=== PATIENT | female | born 1990 ===

== ENCOUNTER 2024-08-30 13:03 | Emergency (ER) | payer OTHER, MEDICAID, SELFPAY ==
[2024-08-30 13:14] VITALS: BP 109/68; PULSE 85; RESP 16; TEMP 37.3; O2SAT 96; BMI 25.9
[2024-08-30] MEDS: TET,DIPH,PERTUSS(ACELL),VAC/PF 0.5 ML SYRINGE IM (14:43)
[2024-08-30 14:55] VITALS: BP 100/62; PULSE 80; RESP 20; TEMP 37; O2SAT 100
--- NOTE | 2024-08-30 15:09 | ED_ITS ---
HPI - Wound/Laceration <Kyara Coronado PA-C - Last Filed: 08/30/24 15:21> General Chief Complaint: Wound/Laceration Stated Complaint: Cut RH index finger Time Seen by Provider: 08/30/24 13:34 Source: patient Mode of arrival: Ambulatory History of Present Illness HPI narrative: 33-year-old female presents to the ED status post a right pinky finger injury sustained just prior to arrival. Patient accidentally injured her right pinky on the blades of a office rep. Patient is unsure of tetanus status. Bleeding has been controlled with pressure. Patient states she is able to move her finger normally. No numbness, tingling, weakness. Related Data Allergies Allergy/AdvReac Type Severity Reaction Status Date / Time No Known Drug Allergies Allergy Verified 08/30/24 13:18 Review of Systems <Kyara Coronado PA-C - Last Filed: 08/30/24 15:21> Constitutional Constitutional: Denies chills, Denies fatigue, Denies fever(s), Denies frequent falls, Denies lethargy and Denies weakness Eyes Eyes: Denies change in vision, Denies eye discharge, Denies irritation and Denies loss of vision ENT Ears, Nose, Mouth, and Throat: Denies change in voice, Denies dizziness, Denies neck pain, Denies sore throat and Denies throat swelling Cardiovascular Cardiovascular: Denies chest pain, Denies irregular heart rhythm, Denies lightheadedness, Denies palpitations, Denies dyspnea, Denies dyspnea on exertion and Denies orthopnea Respiratory Respiratory: Denies cough, Denies dyspnea, Denies dyspnea on exertion and Denies wheezing Gastrointestinal Gastrointestinal: Denies abdominal pain, Denies change in bowel habits, Denies diarrhea, Denies nausea and Denies vomiting Musculoskeletal Musculoskeletal: Denies neck pain and Denies numbness Integumentary/Breasts Skin/Breast: Denies pruritus, Denies erythema, Denies rash and Denies wounds Comments: Laceration on right pinky finger Neurologic Neurologic: Denies behavioral changes, Denies confusion, Denies dizziness, Denies frequent falls, Denies loss of vision, Denies numbness and Denies weakness Psychiatric Psychiatric: Denies anxiety, Denies behavioral changes, Denies confusion, Denies depression, Denies homicidal ideation and Denies suicidal ideation Endocrine Endocrine: Denies fatigue, Denies flushing and Denies palpitations Hematologic/Lymphatic Hematologic/Lymphatic: Denies easy bruising Allergic/Immunologic Allergic/Immunologic: Denies urticaria, Denies throat swelling and Denies wheezing Patient History <SHEN Street Last Filed: 08/30/24 15:21> Social History Smoking Status: Never smoker Smoking Status: Never smoker alcohol intake frequency: a few times a week Substance Use Type: marijuana Exam <SHEN Street Last Filed: 08/30/24 15:21> Narrative Exam Narrative: Const General:?cooperative, healthy appearing and comfortable [facility] Head:?normal to inspection Ears:?hearing grossly normal bilaterally Nose:?external nose normal Face and sinus:?normal facial exam and sinuses nontender Mouth:?oral mucosae normal Throat:?posterior oropharynx normal Eyes General:?appearance normal, both eyes and all related structures Neck Neck:?normal visual inspection and no lymphadenopathy noted Resp Effort & Inspection:?normal respiratory effort Auscultation:?clear to auscultation bilaterally Cardio Rate:?regular rate Rhythm:?regular rhythm Integumentary There is a 1 cm linear laceration to the palmar aspect of the middle phalanx. no deeper structures visualized on exam. There is full range of motion. Strength and sensation is intact. Patient is neurovascularly intact. Bleeding is controlled with pressure. Neuro General:?patient alert, patient awake and patient oriented x3 Initial Vital Signs Initial Vital Signs: Vital Signs Temperature 99.1 F 08/30/24 13:14 Pulse Rate 85 08/30/24 13:14 Respiratory Rate 16 08/30/24 13:14 Blood Pressure 109/68 08/30/24 13:14 Pulse Oximetry 96 08/30/24 13:14 Oxygen Delivery Method Room Air 08/30/24 13:14 <Helen Ball DO - Last Filed: 08/31/24 13:56> Initial Vital Signs Initial Vital Signs: Vital Signs Temperature 99.1 F 08/30/24 13:14 Pulse Rate 85 08/30/24 13:14 Respiratory Rate 16 08/30/24 13:14 Blood Pressure 109/68 08/30/24 13:14 Pulse Oximetry 96 08/30/24 13:14 Oxygen Delivery Method Room Air 08/30/24 13:14 Procedures <SHEN Street Last Filed: 08/30/24 15:21> Laceration Repair Laceration 1: Site: hand Side (If applicable): right Size (cm): 1 Description: linear Depth: simple, single layer Local Anesthetic: lidocaine 1% Amount of anesthesia used (mL): 1 Pre-repair: wound explored, irrigated extensively and deep structures intact Skin layer closed with: nylon Skin layer suture size: 5-0 Number of sutures: 3 Technique: simple, interrupted Course <Kyara Coronado PA-C - Last Filed: 08/30/24 15:21> Orders Ordered: Discontinued Medications Diphtheria/Tetanus/Acell Pertussis (Tet,Diph,Pertuss(Acell),Vac/Pf 0.5 Ml Syringe) 0.5 ml IM .ONCE ONE Stop: 08/30/24 14:31 Last Admin: 08/30/24 14:43 Dose: 0.5 ml Documented By: MPO Vital Signs Vital signs: Vital Signs - 8 hr 08/30/24 13:14 08/30/24 14:55 Temperature 99.1 F 98.6 F Pulse Rate 85 80 Respiratory Rate 16 20 Blood Pressure 109/68 100/62 Pulse Oximetry 96 100 Oxygen Delivery Method Room Air Room Air <Helen Ball DO - Last Filed: 08/31/24 13:56> Orders Ordered: Discontinued Medications Diphtheria/Tetanus/Acell Pertussis (Tet,Diph,Pertuss(Acell),Vac/Pf 0.5 Ml Syringe) 0.5 ml IM .ONCE ONE Stop: 08/30/24 14:31 Last Admin: 08/30/24 14:43 Dose: 0.5 ml Documented By: MPO Vital Signs Vital signs: Vital Signs - 8 hr 08/30/24 13:14 08/30/24 14:55 Temperature 99.1 F 98.6 F Pulse Rate 85 80 Respiratory Rate 16 20 Blood Pressure 109/68 100/62 Pulse Oximetry 96 100 Oxygen Delivery Method Room Air Room Air MDM - Wound/Laceration <Kyara Coronado PA-C - Last Filed: 08/30/24 15:21> [facility] Narrative Medical decision making narrative: 33-year-old female presents to the ED status post a right pinky finger injury sustained just prior to arrival. laceration was repaired with 3 sutures. Sutures will need to be removed in 7-10 days. No deeper structures visualized on exam. full range of motion. No concern for foreign bodies or fractures/dislocation. No imaging indicated at this time. Tetanus was updated. Wound care, suture removal instructions discussed with patient. ED return precautions discussed with patient. Patient verbalized understanding. Medical records reviewed: Yes Discharge Plan Departure Patient Disposition: Home Clinical Impression: Laceration Instructions: DI for Laceration Repair Activity Restrictions/Additional Instructions: You were evaluated in the ED today for a finger injury. Your laceration was repaired with 3 sutures. The sutures will need to be removed in 7-10 days. You may go to your PCP's office, a walk-in clinic or return to the ED for suture removal. Your tetanus was also updated today, and is good for the next 10 years. As with any injury, there is a chance of infection. Signs of infection include worsening pain, redness, swelling, discharge, warmth. Return to the ED if you note any signs of infection. Referrals: Jeanne Ha MD [Primary Care Provider] - Stand Alone Forms: Patient Portal/API/Survey ED Sign-out <Helen Ball DO - Last Filed: 08/31/24 13:56> Cosign ED Attending Lilliam Attestation: I was immediately available in the department for consultation.
== END 2024-08-30 14:56 | disposition home or self-care (01) ==
PROVIDERS: Emergency Provider Student in an Organized Health Care Education/Training Program; PCP Family Medicine
DX: S61.216A Laceration without foreign body of right little finger without damage to nail, initial encounter (principal); W45.8XXA Other foreign body or object entering through skin, initial encounter; Z23 Encounter for immunization
CPT/HCPCS: 12001; 90471; 99283; 90715

== ENCOUNTER → 2025-04-06 12:38 | Outpatient (ROUT) | payer OTHER, SELFPAY ==
[2025-04-06 13:24] LABS: Influenza A - CEPHEID Flu A NEGATIVE (NEGATIVE); Influenza B - CEPHEID Flu B NEGATIVE (NEGATIVE); Respiratory Syncytial Virus Negative (Negative)
[2025-04-06 13:25] LABS: COVID-19 CEPHEID 4-PLEX PCR Negative (Negative)
== END ==
LOC: LAB 12:39
PROVIDERS: PCP Family Medicine; Visit Provider Family Medicine
DX: R05.1 Acute cough (principal)
CPT/HCPCS: 87635; 87400; 87420; 0241U